=== PATIENT | female | born 1995 | race Hispanic/Latino ===

== ENCOUNTER 2018-08-18 14:35 | Emergency (ER) | payer OTHER ==
[2018-08-18 15:23] LABS: BASOPHILS % (AUTO) 1.2 % (0.0-5.0); HEMATOCRIT 40.6 % (36-48); MEAN CORPUSCULAR HEMOGLOBIN 28.8 pg (27.0-33.0); MEAN CORPUSCULAR HGB CONC 33.2 g/dL (32.0-36.0); MEAN CORPUSCULAR VOLUME 86.7 fL (79-99); MONOCYTES % (AUTO) 6.3 % (3.0-13.0); NEUTROPHILS % (AUTO) 82.5 % (40.0-77.0); PLATELET COUNT (AUTO) 408 K/uL (130-400); RED BLOOD CELL COUNT(AUTO) 4.68 MIL/uL (4.00-5.50); RED CELL DISTRIBUTION WIDTH 14.1 % (11.0-15.5)
[2018-08-18 15:25] LABS: APPEARANCE,URINE Clear (CLEAR); BILIRUBIN,URINE Negative (NEGATIVE); COLOR,URINE Yellow (YELLOW); GLUCOSE, URINE (UA) Negative (NEGATIVE); KETONES,URINE Negative (NEGATIVE); LEUKOCYTE ESTERASE ,URINE Trace (NEGATIVE); NITRATE,URINE Negative (NEGATIVE); OCCULT BLOOD,URINE Negative (NEGATIVE); PROTEIN,URINE Negative (NEGATIVE)
[2018-08-18 15:30] LABS: HCG,QUAL RESULT NEGATIVE (NEGATIVE)
[2018-08-18 15:32] LABS: RBC,URINE 0-1 /HPF (0-1)
[2018-08-18 15:33] LABS: BACTERIA,URINE Few /HPF (None Seen); SQUAMOUS EPITHELIAL CELL,UR Few /HPF (0-2)
[2018-08-18 15:38] LABS: CREATININE 0.7 mg/dL (0.5-1.5); POTASSIUM 3.8 mmol/L (3.5-5.1)
[2018-08-18 15:43] LABS: ALBUMIN 3.9 g/dL (3.5-5.0); BILIRUBIN,DIRECT 0.1 mg/dL (0.0-0.3); BILIRUBIN,TOTAL 0.4 mg/dL (0.2-1.0); TOTAL PROTEIN, SERUM 8.3 g/dL (6.0-8.3)
[2018-08-18] MEDS ORDERED: DiphenhydrAMINE HCL 50 MG/ML VIAL ONE (15:45)
[2018-08-18] MEDS ORDERED: SODIUM CHLORIDE 0.9% 1000ML 1,000 ML IV ONE (15:45)
[2018-08-18] MEDS ORDERED: METOCLOPRAMIDE 10 MG/2 ML VIAL ONE (15:45)
[2018-08-18] MEDS ORDERED: KETOROLAC TROMETHAMINE 30MG/ML ONE (15:45)
[2018-08-18] MEDS ORDERED: ONDANSETRON HCL 4 MG/2 ML VIAL ONE (15:45)
[2018-08-18 15:47] LABS: RAPID GROUP A STREP NEGATIVE (NEGATIVE)
[2018-08-18] MEDS ORDERED: IPRATROPIUM/ALBUTEROL SULFATE 3 ML SOLUTION IH ONE (15:59)
[2018-08-18 16:58] LABS: AMPHET/METH SCREEN,URINE NEGATIVE (NEGATIVE); BARBITURATE SCREEN, URINE NEGATIVE (NEGATIVE); BENZODIAZEPINES SCREEN,URINE NEGATIVE (NEGATIVE); CANNABINOID SCREEN,URINE POSITIVE (NEGATIVE); COCAINE SCREEN,URINE NEGATIVE (NEGATIVE); OPIATE SCREEN,URINE NEGATIVE (NEGATIVE); PHENCYCLIDINE SCREEN,URINE NEGATIVE (NEGATIVE)
== END 2018-08-18 16:13 | disposition home or self-care (01) ==
LOC: EDH 14:35
DX: G43.009 Migraine without aura, not intractable, without status migrainosus (principal)
CPT/HCPCS: 36415; 80048; 80076; 80305; 81001; 81025; 85025; 87804 ×2; 87880; 96374; 96375; 99283; J1200; J1885; J2405; J2765; J7030

== ENCOUNTER 2019-10-04 10:46 | Emergency (ER) | payer OTHER | END 2019-10-04 11:20 | disposition home or self-care (01) | LOC: EDH 10:46 | DX: F41.9 Anxiety disorder, unspecified (principal); R11.2 Nausea with vomiting, unspecified; R06.02 Shortness of breath; Z72.0 Tobacco use | CPT/HCPCS: 99281 ==